=== PATIENT | female | born 1990 | race American Indian/Alaskan Native ===

== ENCOUNTER 2017-11-25 11:42 | Emergency (ER) | payer OTHER ==
[~2017-11-25] VITALS: Ht 162.6 cm; Wt 97.1 kg
[~2017-11-25 11:42] MED LIST: MACROBID 100 M100 MG PO; NORCO 5-325 TA1 EACH PO; PRENATAL FORMU1 EAC3 PO; VITAMIN D400 UNI2 PO; ZOFRAN4 MG PO
== END 2017-11-25 12:26 | disposition home or self-care (01) ==
LOC: ED 11:42
DX: O99.89 Other specified diseases and conditions complicating pregnancy, childbirth and the puerperium (principal); M25.562 Pain in left knee; Z79.899 Other long term (current) drug therapy; Z3A.36 36 weeks gestation of pregnancy; W18.30XA Fall on same level, unspecified, initial encounter
CPT/HCPCS: 99282

== ENCOUNTER 2017-12-29 00:09 | Inpatient (IN) | payer OTHER ==
[~2017-12-29] VITALS: Ht 162.6 cm; Wt 102.0 kg
--- NOTE | 2017-12-29 07:05 | PR ---
[facility] [address] [place], [place] [address] Signed Progress Notes IP Datetime Report Generated by CPN: 12/29/2017 07:05 PROGRESS NOTES: [id number] Impression: Normal progression of labor Plan: Continue present management; Anticipate Vaginal Delivery VITAL SIGNS: [id number] Vital Signs: Reviewed; Within Normal Limits EXAM: [id number] Dilatation: 5.0 Effacement: 90 Station: -1 Uterine Contractions: every 2-3 minutes MEMBRANES: [id number] Pooling: Negative Membrane Status: Ruptured Amniotic Fluid Color: Clear ROM Note: SROM during exam Comments: Comfortable with Epidural Fetus A: [id number] FHR Baseline: 125 Variability: Moderate 6-25bpm Accelerations: 15X15 Decelerations: None FHR Category: Category I Presentation: Vertex Comments on Fetus A: No evidence of metabolic acidosis Fetus B: [id number] Signing Physician: Iris Escobar MD CC: *Electronically Signed* 12/29/17 0705 IRIS ESCOBAR MD PATIENT NAME: DIDI BRYAN PROGRESS NOTE DATE OF : 89 PHYSICIAN: IRIS ESCOBAR MD RPT #: [id number] REPORT IS CONFIDENTIAL AND NOT TO BE RELEASED WITHOUT AUTHORIZATION
--- NOTE | 2017-12-29 08:44 | PR ---
[facility] [address] [facility] [place], [place] [address] Signed Progress Notes IP Datetime Report Generated by CPAlexi: 12/29/2017 08:43 PROGRESS NOTES: [id number] Impression: Normal progression of labor; Reassuring heart rate Procedures: Sterile Vag Exam Plan: Continue present management Informed Consent Obtain: Vaginal Delivery; Risks, Benefits and Alternatives Discussed VITAL SIGNS: [id number] Vital Signs: Reviewed; Within Normal Limits EXAM: [id number] Dilatation: 10.0 Effacement: 100 Station: 1 Uterine Contractions: q2 minutes MEMBRANES: [id number] Pooling: Negative Membrane Status: Ruptured Amniotic Fluid Color: Clear ROM Note: SROM during exam Comments: Pt now complete and feeling pressure and urge to push. Prepare for . Fetus A: [id number] FHR Baseline: 140 Variability: Moderate 6-25bpm Accelerations: None Decelerations: Early FHR Category: Category I Presentation: Vertex Other Presentation: REINALDO Comments on Fetus A: No evidence of metabolic acidosis Fetus B: [id number] Signing Physician: Doris Salas DO CC: *Electronically Signed* 12/29/17 0843 DORIS SALAS DO PATIENT NAME: CLOSE,CARRISA GUILLERMO PROGRESS NOTE DATE OF : 91 PHYSICIAN: DORIS SALAS DO RPT #: [id number] REPORT IS CONFIDENTIAL AND NOT TO BE RELEASED WITHOUT AUTHORIZATION
--- NOTE | 2017-12-30 12:08 | PR ---
[facility] [address] [place] [address] Signed PP Progress Notes Datetime Report Generated by CPN: 12/30/2017 12:08 SUBJECTIVE: [id number] Pain: Within normal limits Nausea/Vomiting: Denies Vital Signs: [id number] Vital Signs: Reviewed; Within Normal Limits EXAM: [id number] Abdomen/Uterus: Normal Lochia: Normal Extremities: Normal Exam Comments: PP Hgb/Hct = 11.4/32.2 IMPRESSION/PLAN/PROCEDURES: [id number] Impression: Normal progression Plan: Discharge Procedures: None Progress Notes: Doing well, wants to go home. Signing Physician: Iris Escobar MD CC: *Electronically Signed* 12/30/17 1208 IRIS ESCOBAR MD PATIENT NAME: DIDI BRYAN PROGRESS NOTE DATE OF : 91 PHYSICIAN: IRIS ESCOBAR MD RPT #: [id number] REPORT IS CONFIDENTIAL AND NOT TO BE RELEASED WITHOUT AUTHORIZATION
== END 2017-12-30 13:15 | disposition home or self-care (01) | DRG 775 ==
LOC: FBC 00:09
PROVIDERS: ADMIT General Practice
PROC: 10E0XZZ Delivery of Products of Conception, External Approach (ICD-10-PCS; principal; 2017-12-29)
PROC: 0KQM0ZZ Repair Perineum Muscle, Open Approach (ICD-10-PCS; principal; 2017-12-29)
PROC: 00HU33Z Insertion of Infusion Device into Spinal Canal, Percutaneous Approach (ICD-10-PCS; 2017-12-29)
PROC: 3E0R3BZ Introduction of Anesthetic Agent into Spinal Canal, Percutaneous Approach (ICD-10-PCS; 2017-12-29)
DX: O48.0 Post-term pregnancy (principal); Z37.0 Single live birth; O70.1 Second degree perineal laceration during delivery; Z3A.41 41 weeks gestation of pregnancy
CPT/HCPCS: 01960; 36415; 85027; J2590; J2795

== ENCOUNTER 2018-03-08 16:25 | Emergency (ER) | payer OTHER ==
[~2018-03-08] VITALS: Ht 162.6 cm; Wt 101.6 kg
== END 2018-03-08 19:38 | disposition home or self-care (01) ==
LOC: ED 16:25
DX: N83.11 Corpus luteum cyst of right ovary (principal); Z79.899 Other long term (current) drug therapy
CPT/HCPCS: 74177; 80053; 81001; 82150; 83690; 84703; 85025; 99284; Q9967

== ENCOUNTER 2020-07-09 22:00 | Emergency (ER) | payer OTHER ==
[~2020-07-09] VITALS: Ht 162.6 cm; Wt 81.7 kg
--- OUTSIDE RECORDS SUMMARY | ~2020-07-09 | XMS | Encounter Summary ---
Demographics + + + | Address | [address] | | | [place] [address] | + + + | Home Phone | | + + + | Preferred Language | Unknown | + + + | Marital Status | Single | + + + | Sabianism Affiliation | Unknown | + + + | Race | Unknown | + + + | Ethnic Group | Unknown | + + + Author + + + | Author | [facility] | | | and [place] | + + + | Organization | [facility] | | | and [place] | + + + | Address | Unknown | + + + | Phone | Unavailable | + + + Support + + +---------+ + | Name | Relationship | Address | Phone | + + +---------+ + | Merline Malone | ECON | Unknown | | + + +---------+ + Care Team Providers + +------+ + | Care Junior Buyer Name | Role | Phone | + +------+ + | Russel Osborn PA-C | PCP | | + +------+ + Encounter Details +--------+ + + + + | Date | Type | Department | Care Team | Description | +--------+ + + + + | 06/09/ | Imaging | [facility] | Provider, | | | 2018 | Exam | [facility] | [address] | | | | | [address] | | | | | [place] [address] | [place] [address] | | | | | [place] [address] | | | | | | [phone] | | | +--------+ + + + + Social History + +-------+ +--------+------+ | Tobacco Use | Types | Packs/Day | Years | Date | | | | | Used | | + +-------+ +--------+------+ | Never Assessed | | | | | + +-------+ +--------+------+ + + + | Sex Assigned at | Date Recorded | | | | + + + | Not on file | | + + + documented as of this encounter Plan of Treatment Not on filedocumented as of this encounter Procedures + +--------+ + + + | Procedure Name | Priori | Date/Time | Associated Diagnosis | Comments | | | ty | | | | + +--------+ + + + | MRI KNEE LEFT WO | Routin | 04/27/2018 | | Results for this | | CONTRAST | e | 3:00 PM | | procedure are in the | | | | PDT | | results section. | + +--------+ + + + documented in this encounter Results MRI Knee Left wo Contrast (04/27/2018 3:00 PM PDT) + + | Specimen | + + | | + + + + + | Narrative | Performed At | + + + | External films for comparison only | [facility] | | | | | No results will be in the chart. | | + + + + +---------+ + + | Performing | Address | City/State/Zipcode | Phone Number | | Organization | | | | + +---------+ + + | [facility] | | | | + +---------+ + + documented in this encounter Visit Diagnoses Not on filedocumented in this encounter"
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
--- OUTSIDE RECORDS SUMMARY | ~2020-07-09 | XMS | Encounter Summary ---
Demographics + + + | Address | [address] | | | [place] [address] | + + + | Home Phone | | + + + | Preferred Language | Unknown | + + + | Marital Status | Single | + + + | Spiritism Affiliation | Unknown | + + + | Race | Unknown | + + + | Ethnic Group | Unknown | + + + Author + + + | Author | [facility] | | | and [place] | + + + | Organization | [facility] | | | and [place] | [...] Team Providers + +------+ + | Care Block Saw Operator Name | Role | Phone | + [...] | MED [facility]NAL | MD [address] | | | | | IMAGING [address] | [address] | | | | | [place] [address] | [place] [address] | | | | | [place] [address] | | | | | | [phone] | | | +--------+ + + + [...] | + +--------+ + + + | XR KNEE LEFT 1 - 2 | Routin | 04/20/2018 | | Results for this | | VW | e | 10:15 AM | | procedure are in the | | | | PDT | | results section. | + +--------+ + + + documented in this encounter Results XR Knee Left 1 - 2 Vw (04/20/2018 10:15 AM PDT) + + | Specimen | + [...]
--- OUTSIDE RECORDS SUMMARY | ~2020-07-09 | XMS | Encounter Summary ---
Demographics + + + | Address | [address] | | | [place] [address] | + + + | Home Phone | | + + + | Preferred Language | Unknown | + + + | Marital Status | Single | + + + | Latter-Day Affiliation | Unknown | + + + | Race | Unknown | + + + | Ethnic Group | Unknown | + + + Author + + + | Author | [facility] | | | and [place] | + + + | Organization | [facility] | | | and [place] | [...] Team Providers + +------+ + | Care Medical Technician Assistant Name | Role | Phone | + [...] | | | | | | | SC KNEE | | | | | | | SCOPE,AID | | | | | | | ANT CRUCIATE | | | | | | | REPAIR SC | | | | | | | [...] +--------+--------+ + + + + Encounter Details +--------+ + + + + | Date | Type | Department | Care Team | Description | +--------+ + + + + | 06/24/ | Anesthesia | [facility] | Silverio Oneill MD | | | 2018 | Event | [facility] | [address] | | | | | [address] | [place] | | | | | [place] | [id number] | | | | | [address] | | | | | | [phone] | Mani Berry MD | | | | | | [address] | | | | | | [place] | | | | | | [id number] | | | | | | | | +--------+ + + + + Anesthesia Record + + + + + | Procedure Name | Responsible | Anesthesia Start | Anesthesia Stop Time | | | Anesthesiologist | Time | | + + + + + | Left Knee Anterior | Silverio Oneill MD | 06/24/18 1259 | 06/24/18 1507 | | Cruciate Ligament | | | | | Reconstruction with | | | | | Partial Lateral | | | | | Meniscus Repair | | | | | *AUTOGRAFT* (Left | | | | | Knee) | | | | + + + + + +----+---+ + + | Da | T | Event | Comment | | te | i | | | | | m | | | | | e | | | +----+---+ + + | 07 | 1 | | | | /2 | 2 | | | | 7/ | 2 | | | | 20 | 1 | | | | 18 | | | | +----+---+ + + | | 1 | An Checkout | Pre-use anesthesia machine/equipment checkout. | | | 2 | | | | | 4 | | | | | 7 | | | +----+---+ + + | | 1 | Pre-Procedu | | | | 2 | ral Timeout | | | | 5 | Completed | | | | 0 | | | +----+---+ + + | | 1 | An Start | | | | 2 | Data | | | | 5 | | | | | 1 | | | +----+---+ + + | | 1 | Block Start | | | | 2 | | | | | 5 | | | | | 1 | | | +----+---+ + + | | 1 | an silverio now | | | | 2 | | | | | 5 | | | | | 6 | | | +----+---+ + + | | 1 | AN Block | | | | 2 | End | | | | 5 | | | | | 9 | | | +----+---+ + + | | 1 | an stop | | | | 2 | data | | | | 5 | | | | | 9 | | | +----+---+ + + | | 1 | An Start | Reassessment prior to anesthesia induction/procedure. | | | 2 | | | | | 5 | | | | | 9 | | | +----+---+ + + | | 1 | Preoxygenat | | | | 3 | ed | | | | 0 | | | | | 3 | | | +----+---+ + + | | 1 | Antibiotic | | | | 3 | Given | | | | 0 | | | | | 4 | | | +----+---+ + + | | 1 | An | | | | 3 | Induction | | | | 0 | | | | | 4 | | | +----+---+ + + | | 1 | An | | | | 3 | Intubation | | | | 0 | | | | | 5 | | | +----+---+ + + | | 1 | AN Bite | | | | 3 | Block | | | | 0 | | | | | 6 | | | +----+---+ + + | | 1 | Chama | | | | 3 | 43-degrees | | | | 0 | | | | | 7 | | | +----+---+ + + | | 1 | An Tourn | | | | 3 | Inflated | | | | 1 | | | | | 5 | | | +----+---+ + + | | 1 | First | | | | 3 | Inc/Proc St | | | | 1 | | | | | 5 | | | +----+---+ + + | | 1 | An Tourn | 97 minutes | | | 4 | Deflated | | | | 5 | | | | | 3 | | | +----+---+ + + | | 1 | Chama off | | | | 4 | | | | | 5 | | | | | 4 | | | +----+---+ + + | | 1 | Extubated | | | | 5 | Awake | | | | 0 | | | | | 1 | | | +----+---+ + + | | 1 | an stop | | | | 5 | data | | | | 0 | | | | | 1 | | | +----+---+ + + | | 1 | An Stop | Patient handed off to recovery nurse. | | | 0 | | | | | 7 | | | +----+---+ + + +------+ | Meds | +------+ + + + | Name | Total | + + + | midazolam | 2 mg | + + + | fentaNYL | 100 mcg | + + + | lidocaine 2% (PF) | 160 mg | + + + | propofol | 200 mg | + + + | dexamethasone | 10 mg | + + + | ropivacaine 0.5% | 24 mL | + + + | ceFAZolin (ANCEF, KEFZOL) 100 | 2 g | | mg/mL IV syringe 2 g | | + + + | lactated ringers (LR) infusion | 1,200 mL | + + + + + | Name | + + | N2O Flow Rate (L/Min) | + + | O2 Flow Rate (L/Min) | + + | Insp O2 | + + | Exp SEV | + + | Air Flow Rate (L/Min) | + + + + | No blood administrations on file. | + + +--------+ + + + | Type | Details | Placement | Removal | +--------+ + + + | Periph | 06/24/18; 1153; Left; Hand; | 06/24/18 1153 by | | | eral | [id number] catheter system; | Donn Gallardo RN | | | IV | 20 gauge | | | +--------+ + + + | Airway | Placement Date: 06/24/18; | 06/24/18 1305 by | 06/24/18 1501 by | | | Placement Time: 1305 (created via | Mani Berry MD | Mani Berry MD | | | procedure documentation); Mask | | | | | Ventilation: EZ; Attempts: 1; | | | | | Airway Type: laryngeal mask; | | | | | Size: 4; Trauma: none; Placement | | | | | Check: exhaled CO2 detection | | | | | device; Removal Date: 06/24/18; | | | | | Removal Time: 1501 | | | +--------+ + + + | Read | 06/24/18; 1325; Left; knee; | 06/24/18 1325 by | 02/21/19 1342 by | | only - | 02/21/19 (Completed/Removed by | Kay Lee RN | User Epic | | | Utility); 1342 (Completed/Removed | | | | Incisi | by Utility) | | | | on | | | | +--------+ + + + documented in this encounter Social History + + + +--------+------+ | [...] + + documented as of this encounter OR Notes Anesthesia Postprocedure Evaluation - Mani Berry MD - 06/24/2018 4:47 PM PDTFormatti ng of this note might be different from the original. ANESTHESIA POSTANESTHESIA EVALUATION Paxton Luna Close 27 y.o. female 1990 [id number] Procedure(s) Left Knee Anterior Cruciate Ligament Reconstruction with Partial Lateral Meni scus Repair *AUTOGRAFT* (Left Knee) Cooperates? Yes Mental Status Performs simple tasks. Respiratory Satisfactory - Airway patent (self maintained). Cardiovascular Satisfactory - Blood pressure and heart rate acceptable Temperature Satisfactory Pain Satisfactory N/V Control Satisfactory Hydration Satisfactory - No signs of dehydration Complications None apparent Some mild medial knee pain. Doing well. Vitals: 06/24/18 1600 06/24/18 1615 06/24/18 1630 BP: 97/79 124/78 130/78 Pulse: 100 77 93 Temp: Resp: 15 SpO2: 100% 100% 100% Electronically signed by Mani Berry MD 06/24/2018 16:[facility] Mani Berry MD at 05/30 4:48 PM PDTAnesthesia Procedure Notes - Mani Berry MD - 06/24/2018 1:39 PM PD TAssociated Order(s): ANE NERVE BLOCK CATHETER NOTEPerineural Procedure Note 06/24/2018 12:59 Nerve block: femoral Laterality: left Continuous block with catheter: No Provider requested procedure: [place] Indication: postoperative analgesia Preprocedure check: patient identified, procedure and rescue equipment checked, preevaluati on including airway assessment complete, risks/benefits discussed, consent obtained, timeout performed, reassessment prior to procedure and monitors applied Patient position: supine Preparation: chlorhexidine/isopropyl alcohol Technique: ultrasound Radiology image stored in patient's chart: ultrasound Needle: stimulating and insulated Needle size: 21 g Needle length: 4 in Medication administered through: needle Negative findings: no blood aspirated and no paresthesia Total volume of local anesthetic solution administered: 12 (Incremental injection in 3-4 mL increments with negative aspiration each time.) mL Attempts: 1 Ease of procedure: easy Comments: Regional block placed for postoperative pain control at request of patient and choi rgeon. Ultrasound utilized throughout entirety of procedure for the purposes of directing t he needle to nerve proximity and watching spread of local anesthetic. Positive level and "d onut" sign. Ultrasound image in chart. NIBP/SpO2 monitoring. Please see anesthesia record or flowsheet for vital sign documentation and see anesthesia r ecord or MAR for all medication documentation. Performing provider: MANI BERRY Windows Security Engineer: AVA Stahl Electronically Signed by: Mani Berry MD ESi date/time: 06/24/2018 13:39 nesthesia Procedure Notes - Mani Berry MD - 06/24/2018 1:38 PM PDTAssociated Order(s): ANE NERVE BLOCK CA THETER NOTEPerineural Procedure Note 06/24/2018 12:55 Nerve block: femoral Laterality: left Continuous block with catheter: No Provider requested procedure: Poncho Indication: postoperative analgesia Preprocedure check: patient identified, procedure and rescue equipment checked, preevaluati on including airway assessment complete, risks/benefits discussed, consent obtained, timeout performed, reassessment prior to procedure and monitors applied Patient position: supine Preparation: chlorhexidine/isopropyl alcohol Technique: ultrasound Radiology image stored in patient's chart: ultrasound Needle: stimulating and insulated Needle size: 21 g Needle length: 4 in Medication administered through: needle Negative findings: no blood aspirated and no paresthesia Total volume of local anesthetic solution administered: 15 (Incremental injection in 3-4 mL increments with negative aspiration each time.) mL Attempts: 1 Ease of procedure: easy Comments: Regional block placed for postoperative pain control at request of patient and choi rgeon. Ultrasound utilized throughout entirety of procedure for the purposes of directing t he needle to nerve proximity and watching spread of local anesthetic. Positive level and "d onut" sign. Ultrasound image in chart. NIBP/SpO2 monitoring. Please see anesthesia record or flowsheet for vital sign documentation and see anesthesia r ecord or MAR for all medication documentation. Performing provider: MANI BERRY Windows Security Engineer: AVA Stahl Electronically Signed by: Mani Berry MD ESig date/time: 06/24/2018 13:38 nesthesia Procedure Notes - Mani Berry MD - 06/24/2018 1:37 PM PDTAssociated Order(s): ANE AIRWAY NOTEAne sthesia Airway Placement 06/24/2018 13:05 Preprocedure check: patient identified, suction, airway equipment checked, oxygen, airway a ssessed and patient reassessment prior to induction Rapid Sequence Induction: no Mask ventilation: easy Attempts: 1 Airway type: laryngeal mask Size: 4 Cuffed: cuffed Route, reference point: center of mouth Trauma: none Tube placement verification: carbon dioxide detection Performing provider: MANI BERRY Electronically Signed by: Mani Berry MD ESig date/time: 13:37 nesthesia Preprocedu re Evaluation - Mani Berry MD - 06/24/2018 12:08 PM PDTFormatting of this note might b e different from the original. ANESTHESIA PREANESTHESIA EVALUATION Paxton Glover 27 y.o. female 1990 [id number] Procedure(s): Left Knee Anterior Cruciate Ligament Reconstruction with Possible Lateral Men iscus Repair *AUTOGRAFT* (Left Knee) Medical history, anesthesia, medications, allergy, NPO status verified histories reviewed. Labs reviewed. Review of Systems / Med History Anesthesia History (-) PONV, difficult intubation, malignant hyperthermia Cardiovascular (-) past PA , Exercise tolerance >4 METS Pulmonary No acute pulmonary concerns.. Neurology (-) CVA Renal (-) chronic renal insufficiency Gastrointestinal/Hepatic (-) reflux/GERD. Endocrine (-) Diabetes.(+) obesity: BMI (30-39) Physical Exam Airway MP I, TM >3 FB, Mouth opening >2 FB. Neck: full ROM, extends >30 degrees. Dental Bill sly normal except where noted below.; CV Rhythm regular. Rate Normal. (-) murmur. Pulm Clear to auscultation bilaterally. Neuro Grossly normal. Anesthesia Plan ASA 2 Type: General. Induction: Intravenous. Potential problems: None anticipated. Monitors: Standard ASA monitors. Consent statement:Anesthetic plan, alternatives, risks and benefits discussed with patient and family. Risks discussed included (but were not limited to): perioperative CV events, sore throat, h eart problems, respiratory events, nausea, failed or inadequate block, bleeding, nerve damag e, intravascular injection. Consenting person understands and agrees to proceed. PARQ. Femoral and Sciatic single-shot peripheral nerve blocks requested by patient and surgeon fo r postoperative pain control. Full PARQ held. All questions answered. Plan GA w/ LMA. . documented in this en counter Plan of Treatment Not on filedocumented as of this encounter Procedures + +--------+ + + + | Procedure Name | Priori | Date/Time | Associated Diagnosis | Comments | | | ty | | | | + +--------+ + + + | ANE NERVE BLOCK | Routin | 06/24/2018 | | Results for this | | CATHETER NOTE | e | 1:39 PM | | procedure are in the | | | | PDT | | results section. | + +--------+ + + + | ANE NERVE BLOCK | Routin | 06/24/2018 | | Results for this | | CATHETER NOTE | e | 1:38 PM | | procedure are in the | | | | PDT | | results section. | + +--------+ + + + | ANE AIRWAY NOTE | Routin | 06/24/2018 | | Results for this | | | e | 1:37 PM | | procedure are in the | | | | PDT | | results section. | + +--------+ + + + documented in this encounter Results Anesthesia Perineural Note (06/24/2018 1:39 PM PDT) + + + | Narrative | Performed At | + + + | Mani Berry MD 06/24/2018 13:40 Perineural Procedure Note | | | 06/24/2018 12:59 Nerve block: femoral Laterality: left | | | Continuous block with catheter: No Provider requested procedure: | | | [place] Indication: postoperative analgesia Preprocedure check: | | | patient identified, procedure and rescue equipment checked, | | | preevaluation including airway assessment complete, risks/benefits | | | discussed, consent obtained, timeout performed, reassessment prior | | | to procedure and monitors applied Patient position: supine | | | Preparation: chlorhexidine/isopropyl alcohol Technique: ultrasound | | | Radiology image stored in patient's chart: ultrasound Needle: | | | stimulating and insulated Needle size: 21 g Needle length: 4 in | | | Medication administered through: needle Negative findings: no blood | | | aspirated and no paresthesia Total volume of local anesthetic | | | solution administered: 12 (Incremental injection in 3-4 mL | | | increments with negative aspiration each time.) mL Attempts: 1 Ease | | | of procedure: easy Comments: Regional block placed for | | | postoperative pain control at request of patient and surgeon. | | | Ultrasound utilized throughout entirety of procedure for the | | | purposes of directing the needle to nerve proximity and watching | | | spread of local anesthetic. Positive level and "donut" sign. | | | Ultrasound image in chart. NIBP/SpO2 monitoring. Please see | | | anesthesia record or flowsheet for vital sign documentation and see | | | anesthesia record or MAR for all medication documentation. | | | Performing provider: MANI BERRY Windows Security Engineer: AVA Stahl | | | Electronically Signed by: Mani Berry MD | | | ESig date/time: 06/24/2018 13:39 | | + + + + + | Procedure Note | + + | Mani Berry MD - 06/24/2018 1:39 PM PDT Perineural Procedure Note06/24/2018 | | 12:59Nerve block: femoralLaterality: leftContinuous block with catheter: NoProvider | | requested procedure: WillardIndication: postoperative analgesiaPreprocedure check: | | patient identified, procedure and rescue equipment checked, preevaluation including | | airway assessment complete, risks/benefits discussed, consent obtained, timeout | | performed, reassessment prior to procedure and monitors appliedPatient position: | | supinePreparation: chlorhexidine/isopropyl alcoholTechnique: ultrasoundRadiology image | | stored in patient's chart: ultrasoundNeedle: stimulating and insulatedNeedle size: 21 | | gNeedle length: 4 inMedication administered through: needleNegative findings: no blood | | aspirated and no paresthesiaTotal volume of local anesthetic solution administered: 12 | | (Incremental injection in 3-4 mL increments with negative aspiration each time.) | | mLAttempts: 1Ease of procedure: easyComments: Regional block placed for postoperative | | pain control at request of patient and surgeon. Ultrasound utilized throughout entirety | | of procedure for the purposes of directing the needle to nerve proximity and watching | | spread of local anesthetic. Positive level and "donut" sign. Ultrasound image in | | chart. NIBP/SpO2 monitoring.Please see anesthesia record or flowsheet for vital sign | | documentation and see anesthesia record or MAR for all medication | | documentation.Performing provider: MANI BERRY TAssistant: Patty Montenegro, | | ATElectronically Signed by: Mani Berry MD ESi date/time: | | 06/24/2018 13:39 | |Ease of procedure: easy | | | |Comments: Regional block placed for postoperative pain control at request of patient and choi rgeon. Ultrasound utilized throughout entirety of procedure for the purposes of directing t he needle to nerve proximity and | |watching spread of local anesthetic. Positive level and "donut" sign. Ultrasound image in chart. NIBP/SpO2 monitoring. | | | | | |Please see anesthesia record or flowsheet for vital sign documentation and see anesthesia r ecord or [facility] for all medication documentation. | | | | | |Performing provider: MANI BERRY | |Windows Security Engineer: AVA Stahl | | | | | | | |Electronically Signed by: Mani Berry MD ESig date/time: 06/24/2018 13:39 | + + Anesthesia Perineural Note (06/24/2018 1:38 PM PDT) + + + | Narrative | Performed At | + + + | Mani Berry MD 06/24/2018 13:39 Perineural Procedure Note | | | 06/24/2018 12:55 Nerve block: femoral Laterality: left | | | Continuous block with catheter: No Provider requested procedure: | | | Poncho Indication: postoperative analgesia Preprocedure check: | | | patient identified, procedure and rescue equipment checked, | | | preevaluation including airway assessment complete, risks/benefits | | | discussed, consent obtained, timeout performed, reassessment prior | | | to procedure and monitors applied Patient position: supine | | | Preparation: chlorhexidine/isopropyl alcohol Technique: ultrasound | | | Radiology image stored in patient's chart: ultrasound Needle: | | | stimulating and insulated Needle size: 21 g Needle length: 4 in | | | Medication administered through: needle Negative findings: no blood | | | aspirated and no paresthesia Total volume of local anesthetic | | | solution administered: 15 (Incremental injection in 3-4 mL | | | increments with negative aspiration each time.) mL Attempts: 1 Ease | | | of procedure: easy Comments: Regional block placed for | | | postoperative pain control at request of patient and surgeon. | | | Ultrasound utilized throughout entirety of procedure for the | | | purposes of directing the needle to nerve proximity and watching | | | spread of local anesthetic. Positive level and "donut" sign. | | | Ultrasound image in chart. NIBP/SpO2 monitoring. Please see | | | anesthesia record or flowsheet for vital sign documentation and see | | | anesthesia record or MAR for all medication documentation. | | | Performing provider: MANI BERRY Windows Security Engineer: AVA Stahl | | | Electronically Signed by: Mani Berry MD | | | ESig date/time: 06/24/2018 13:38 | | + + + + + | Procedure Note | + + | Mani Berry MD - 06/24/2018 1:38 PM PDT Perineural Procedure Note06/24/2018 | | 12:55Nerve block: femoralLaterality: leftContinuous block with catheter: NoProvider | | requested procedure: WillardIndication: postoperative analgesiaPreprocedure check: | | patient identified, procedure and rescue equipment checked, preevaluation including | | airway assessment complete, risks/benefits discussed, consent obtained, timeout | | performed, reassessment prior to procedure and monitors appliedPatient position: | | supinePreparation: chlorhexidine/isopropyl alcoholTechnique: ultrasoundRadiology image | | stored in patient's chart: ultrasoundNeedle: stimulating and insulatedNeedle size: 21 | | gNeedle length: 4 inMedication administered through: needleNegative findings: no blood | | aspirated and no paresthesiaTotal volume of local anesthetic solution administered: 15 | | (Incremental injection in 3-4 mL increments with negative aspiration each time.) | | mLAttempts: 1Ease of procedure: easyComments: Regional block placed for postoperative | | pain control at request of patient and surgeon. Ultrasound utilized throughout entirety | | of procedure for the purposes of directing the needle to nerve proximity and watching | | spread of local anesthetic. Positive level and "donut" sign. Ultrasound image in | | chart. NIBP/SpO2 monitoring.Please see anesthesia record or flowsheet for vital sign | | documentation and see anesthesia record or MAR for all medication | | documentation.Performing provider: MANI BERRY TAssistant: Patty Montenegro, | | ATElectronically Signed by: Mani Berry MD ESi date/time: | | 06/24/2018 13:38 | |Ease of procedure: easy | | | |Comments: Regional block placed for postoperative pain control at request of patient and choi rgeon. Ultrasound utilized throughout entirety of procedure for the purposes of directing t he needle to nerve proximity and | |watching spread of local anesthetic. Positive level and "donut" sign. Ultrasound image in chart. NIBP/SpO2 monitoring. | | | | | |Please see anesthesia record or flowsheet for vital sign documentation and see anesthesia r ecord or MAR for all medication documentation. | | | | | |Performing provider: MANI BERRY T | |Windows Security Engineer: AVA Stahl | | | | | | | |Electronically Signed by: Mani Berry MD [facility] date/time: 06/24/2018 13:38 | + + Anesthesia Airway Note (06/24/2018 1:37 PM PDT) + + + | Narrative | Performed At | + + + | Mani Berry MD 06/24/2018 13:37 Anesthesia Airway | | | Placement 06/24/2018 13:05 Preprocedure check: patient identified, | | | suction, airway equipment checked, oxygen, airway assessed and | | | patient reassessment prior to induction Rapid Sequence Induction: no | | | Mask ventilation: easy Attempts: 1 Airway type: laryngeal mask | | | Size: 4 Cuffed: cuffed Route, reference point: center of mouth | | | Trauma: none Tube placement verification: carbon dioxide detection | | | Performing provider: MANI BERRY Electronically Signed by: | | | MD Antione Hullg | | | date/time: 06/24/2018 13:37 | | + + + + + | Procedure Note | + + | Mani Berry MD - 06/24/2018 1:37 PM PDT Anesthesia Airway Placement06/24/2018 | | 13:05Preprocedure check: patient identified, suction, airway equipment checked, oxygen, | | airway assessed and patient reassessment prior to inductionRapid Sequence Induction: | | noMask ventilation: easyAttempts: 1Airway type: laryngeal maskSize: 4Cuffed: | | cuffedRoute, reference point: center of mouthTrauma: noneTube placement verification: | | carbon dioxide detectionPerforming provider: MANI BERRY TElectronically Signed by: | | MD Amanuel Hull date/time: 06/24/2018 13:37 | | | |Size: 4 | |Cuffed: cuffed | |Route, reference point: center of mouth | |Trauma: none | |Tube placement verification: carbon dioxide detection | |Performing provider: MANI BERRY | | | | | |Electronically Signed by: Mani Berry MD ESig date/time: 13:37 | | | + + documented in this encounter Visit Diagnoses Not on filedocumented in this encounter Administered Medications + +--------+ +------+------+------+ | Medication Order | MAR | Action | Dose | Rate | Site | | | Action | Date | | | | + +--------+ +------+------+------+ | ceFAZolin (ANCEF, KEFZOL) 100 | Given | 06/24/20 | 2 g | | | | mg/mL IV syringe 2 g 2 g, | | 18 1:04 | | | | | Intravenous, Administer over 30 | | PM PDT | | | | | Minutes, Prior to Incision, | | | | | | | Starting Wed06/24/18 at 0309, For | | | | | | | 1 dose, administer within 1 hour | | | | | | | of incision, Pre-op, | | | | | | | Indications: Surgical Prophylaxis | | | | | | + +--------+ +------+------+------+ +---+---+ | | | +---+---+ + +-------+ +-------+---+---+ | dexamethasone (PF) 10 mg/mL | Given | 06/24/20 | 10 mg | | | | injection Intravenous, PRN, | | 18 1:08 | | | | | Starting Wed06/24/18 at 1308, | | PM PDT | | | | | Anesthesia Intra-op | | | | | | + +-------+ +-------+---+---+ +---+---+ | | | +---+---+ + +-------+ +--------+---+---+ | fentaNYL (PF) injection | Given | 06/24/20 | 50 mcg | | | | Intravenous, PRN, Pain, Starting | | 18 1:15 | | | | | 06/24/18 at 1251, Anesthesia | | PM PDT | | | | | Intra-op | | | | | | + +-------+ +--------+---+---+ +-------+ +--------+---+---+ | Given | 06/24/20 | 50 mcg | | | | | 18 12:51 | | | | | | PM PDT | | | | +-------+ +--------+---+---+ +---+---+ | | | +---+---+ + +---------+ +---+---+---+ | lactated ringers (LR) infusion | New Bag | 06/24/20 | | | | | at 10-100 mL/hr, Intravenous, | | 18 2:34 | | | | | CONTINUOUS, Starting 06/24/18 | | PM PDT | | | [...] | | +---+---+ + +-------+ +--------+---+---+ | lidocaine (PF) 2% injection | Given | 06/24/20 | 100 mg | | | | PRN, Starting Wed06/24/18 at | | 18 1:04 | | | | | 1304, Anesthesia Intra-op | | PM PDT | | | | + +-------+ +--------+---+---+ +-------+ +-------+---+---+ | Given | 06/24/20 | 60 mg | | | | | 18 12:55 | | | | | | PM PDT | | | | +-------+ +-------+---+---+ +---+---+ | | | +---+---+ + +-------+ +------+---+---+ | midazolam (VERSED) 1 mg/mL | Given | 06/24/20 | 2 mg | | | | injection Intravenous, PRN, | | 18 12:51 | | | | | Anxiety, Starting Wed06/24/18 at | | PM PDT | | | | | 1251, Anesthesia Intra-op | | | | | | + +-------+ +------+---+---+ +---+---+ | | | +---+---+ + +-------+ +--------+---+---+ | propofol (DIPRIVAN) injection | Given | 06/24/20 | 200 mg | | | | Intravenous, PRN, Starting Wed | 1:04 | | | | | 06/24/18 at 1304, Anesthesia | | PM PDT | | | | | Intra-op | | | | | | + +-------+ +--------+---+---+ +---+---+ | | | +---+---+ + +-------+ +--------+---+---+ | ropivacaine (NAROPIN) 5 mg/mL | Given | 06/24/20 | 12 mLs | | | | (0.5%) injection PERINEURAL, | | 18 12:59 | | | | | PRN, Starting Wed06/24/18 at | | PM PDT | | | | | 1255, Anesthesia Intra-op | | | | | | + +-------+ +--------+---+---+ +-------+ +--------+---+---+ | Given | 06/24/20 | 12 mLs | | | | | 18 12:55 | | | | | | PM PDT | | | | +-------+ +--------+---+---+ +---+---+ | | | +---+---+ documented in this encounter
--- OUTSIDE RECORDS SUMMARY | ~2020-07-09 | XMS | Encounter Summary ---
Demographics + + + | Address | [address] | | | [place] [address] | + + + | Home Phone | | + + + | Preferred Language | Unknown | + + + | Marital Status | Single | + + + | Pentecostal Affiliation | Unknown | + + + | Race | Unknown | + + + | Ethnic Group | Unknown | + + + Author + + + | Author | [facility] | | | and [place] | + + + | Organization | [facility] | | | and [...] Team Providers + +------+ + | Care Mechatronics Technologist Name | Role | Phone | + +------+ + | Russel Osborn PA-C | PCP | | + +------+ + Encounter Details +--------+ + + + + | Date | Type | Department | Care Team | Description | +--------+ + + + + | 05/30/ | Imaging | [facility] | Provider, | | | 2018 | Exam | [facility] | MD Chris [address] | | | | | IMAGING [address] | | | | | [address] | [place] [address] | | | | | [place] [address] | | | | | | [phone] | | | +--------+ + + + [...] + +--------+ + + + | MRI SHOULDER LEFT | Routin | 05/04/2018 | | Results for this | | ARTHROGRAM W | e | 12:00 PM | | procedure are in the | | CONTRAST | | PDT | | results section. | + +--------+ + + + documented in this encounter Results MRI Shoulder Left Arthrogram w Contrast (05/04/2018 12:00 PM PDT) + + | Specimen | [...]
--- OUTSIDE RECORDS SUMMARY | ~2020-07-09 | XMS | Encounter Summary ---
Demographics + + + | Address | [address] | | | [place] [address] | + + + | Home Phone | | + + + | Preferred Language | Unknown | + + + | Marital Status | Single | + + + | Yazidi Affiliation | Unknown | + + + | Race | Unknown | + + + | Ethnic Group | Unknown | + + + Author + + + | Author | [facility] | | | and [place] | + + + | Organization | [facility] | | | and [place] [...] Team Providers + +------+ + | Care Forest Fire Warden Name | Role | Phone | + +------+ + | Russel Osborn PA-C | PCP | | + +------+ + Encounter Details +--------+ + + + + | Date | Type | Department | Care Team | Description | +--------+ + + + + | 06/21/ | Episode | [facility] | [place], | | | 2018 | Changes | ORTHOPEDIC SURGERY | Gibson Connolly MA | | | | | [address] | | | | | | [place] | | | | | | [address] | | | | | | [phone] | | | +--------+ + + + + Social History + + [...] Not on filedocumented as of this encounter Visit Diagnoses Not on filedocumented in this encounter"
--- OUTSIDE RECORDS SUMMARY | ~2020-07-09 | XMS | Encounter Summary ---
Demographics + + + | Address | [address] | | | [place] [address] | + + + | Home Phone | | + + + | Preferred Language | Unknown | + + + | Marital Status | Single | + + + | Jew Affiliation | Unknown | + + + | Race | Unknown | + + + | Ethnic Group | Unknown | + + + Author + + + | Author | [facility] | | | and [place] | + + + | Organization | [facility] | | | and [place] | [...] Team Providers + +------+ + | Care Historic Interpreter Name | Role | Phone | + +------+ + | Russel Osborn PA-C | PCP | | + +------+ + Reason for Visit +---------+ + | Reason | Comments | +---------+ + | Post Op | Post Op Left Knee ACL Reconstruction with possible lateral | | | meniscus Repair DOS:06/24/2018 | +---------+ + Evaluate & Treat (Routine) +--------+--------+ + + + + | Status | Reason | Specialty | Diagnoses / | Referred By | Referred To | | | | | Procedures | Contact | Contact | +--------+--------+ + + + + | Closed | | Orthopedic | Diagnoses | Karis, | Poncho, | | | | Surgery | Chronic | Hope Fitzpatrick, | Jamie Oconnell MD | | | | | instability | [place] [address] | [facility] [address] | | | | | of knee, | | [place], | | | | | left knee | [place] | [place] [address] | | | | | | WAY | Phone: | | | | | | [place], | [phone] | | | | | | [place] [address] | Fax: | | | | | | Phone: | [phone] | | | | | | [phone] | | | | | | | Fax: | | | | | | | [phone] | | +--------+--------+ + + + + Encounter Details +--------+---------+ + + + | Date | Type | Department | Care Team | Description | +--------+---------+ + + + | 10/27/ | Office | [facility] | Jamie Isaac, | S/P ACL | | 2018 | Visit | ORTHOPEDIC SURGERY | [address] | reconstruction | | | | [address] [place] | [facility] | (Primary Dx) | | | | [place], [place] | [id number] | | | | | [address] | | | | | | [phone] | | | +--------+---------+ + + + Social History [...] + + + | Blood Pressure | - | - | | + + + + + | Pulse | - | - | | + + + + + | Temperature | - | - | | + + + + + | Respiratory Rate | - | - | | + + + + + | Oxygen Saturation | - | - | | + + + + + | Inhaled Oxygen | - | - | | | Concentration | | | | + + + + + | Weight | 95.3 kg (210 lb) | 10/27/2018 10:00 AM | | | | | PST | | + + + + + | Height | 162.6 cm (5' 4") | 10/27/2018 10:00 AM | | | | | PST | | + + + + + | Body Mass Index | 36.05 | 10/27/2018 10:00 AM | | | | | PST | | + + + + + documented in this encounter Progress Notes Jamie Isaac MD - 10/27/2018 9:45 AM PSTPatient returns follow-up left knee ACL recons truction 4 months out She is doing better all the time She is a young mother and is very active She is doing her own exercises She will be starting physical therapy soon on her shoulder and would like to add strengthen ing exercises for her ACL as well On physical exam her wound and portals are well-healed No effusion today She has a rock solid ligamentous exam with negative Nixon and negative pivot shift She has excellent range of motion We discussed the restrictions needed to protect the repair as well as exercises to work on We will see her back in 2 months for recheck documented in this encounter Plan of Treatment Not on filedocumented as of this encounter Visit Diagnoses + + | Diagnosis | + + | S/P ACL reconstruction - Primary Other postprocedural status | + + documented in this encounter
--- OUTSIDE RECORDS SUMMARY | ~2020-07-09 | XMS | Clinical Summary ---
Demographics + + + | Address | [address] | | | [place] [address] | + + + | Home Phone | | + + + | Preferred Language | Unknown | + + + | Marital Status | Single | + + + | Holiness Affiliation | Unknown | + + + | Race | Unknown | + + + | Ethnic Group | Unknown | + + + Author + + + | Author | [facility] | | | and [place] | + + + | Organization | [facility] | | | and [place] [...] Team Providers + +------+ + | Care Small Stock Facer Name | Role | Phone | + +------+ + | Russel Osborn PA-C | PCP | | + +------+ + Allergies No Known Allergies Medications + + + +---------+------+------+-------+ | Medication | Sig | Dispensed | Refills | Star | End | Statu | | | | | | t | Date | s | | | | | | Date | | | + + + +---------+------+------+-------+ | ibuprofen (ADVIL, | Take 600 mg by mouth | | 0 | | | Activ | | MOTRIN) 200 mg | every 8 hours as | | | | | e | | tablet | needed for Pain. | | | | | | + + + +---------+------+------+-------+ Active Problems + + + | Problem | Noted Date | + + + | Bankart lesion of left shoulder | 06/30/2018 | + + + | Shoulder instability, left | 06/29/2018 | + + + | Left shoulder pain | 06/28/2018 | + + + | Rupture of anterior cruciate ligament of left knee | 06/24/2018 | + + + | Obesity, Class I, BMI 30-34.9 | 06/24/2018 | + + + Social History + + [...] on file | | + + + Last Filed Vital Signs + + + + + | Vital Sign | Reading | Time Taken | Comments | + + + + + | Blood Pressure | 122/68 | 10/12/2018 2:13 PM | | | | | PST | | + + + + + | Pulse | 74 | 10/12/2018 2:13 PM | | | | | PST | | + + + + + | Temperature | 36.6 C (97.9 F) | 06/24/2018 3:06 PM | | | | | PDT | | + + + + + | Respiratory Rate | 18 | 10/12/2018 2:13 PM | | | | | PST | | + + + + + | Oxygen Saturation | 100% | 06/24/2018 4:45 PM | | | | | PDT [...] | | + + + + + Plan of Treatment + + + + + | Health Maintenance | Due Date | Last | Comments | | | | Done | | + + + + + | Hepatitis C | | | | | Screening | 1 | | | + + + + + | Med Mgmt: BUN | | | | | | 1 | | | + + + + + | Med Mgmt: Cr | | | | | | 1 | | | + + + + + | Medication | | | | | Management | 1 | | | + + + + + | Cervical Cancer | | | | | Screening (Pap) | 2 | | | + + + + + | Vaccine: Influenza | | 09/08/20 | | | (#1) | 0 | 17, | | | | | 12/23/19 | | | | | 17, | | | | | 12/10/19 | | | | | 12 | | + + + + + | Vaccine: | | 10/19/20 | | | Dtap/Tdap/Td (4 - | 7 | 17, | | | Td) | | 01/03/20 | | | | | 13, | | | | | 12/10/19 | | | | | 12 | | + + + + + Implants + +------+--------+ +--------+--------+--------+ | Implanted | Type | Area | Manufacture | Device | Shelf | Model | | | | | r | | Expira | / | | | | | | Identi | tion | Serial | | | | | | fier | Date | / Lot | + +------+--------+ +--------+--------+--------+ | Imp Dev Tglloc W/ Ziplp | | Left: | STARLA - | | 11/07/ | [id number] | | Inline - [id number]: | | Knee | ZIMM | | 2021 | [id number] / | | Qty: 1 on 06/24/2018 by | | | | | | [id number] | | Jamie Isaac MD at [facility] | | | | | | 0 | | [facility] | | | | | | | | CENTER | | | | | | | + +------+--------+ +--------+--------+--------+ | Screw Bone T10 F/T 3.5x32mm - | | Left: | TRINA | | | [id number] | | [id number]: Qty: 1 | | Knee | MEDICAL - | | | / / | | on 06/24/2018 by Poncho | | | SAMARA | | | | | Jamie Oconnell MD at [facility] | | | | | | | | [facility] | | | | | | | + +------+--------+ +--------+--------+--------+ | Washer T8-T10 Scrw | | Left: | TRINA | | | [id number] | | 2.4/2.7/3.5 - | | Knee | MEDICAL - | | | / / | | [id number]: Qty: 1 | | | STRY | | | | | on 06/24/2018 by Poncho, | | | | | | | | Jamie Oconnell MD at [facility] | | | | | | | | [facility] | | | | | | | + +------+--------+ +--------+--------+--------+ Results Not on filefrom Last 3 Months Insurance + +--------+ +--------+ +---------+--------+ | Payer | Benefi | Subscriber | Effect | Phone | Address | Type | | | t Plan | ID | brando | | | | | | / | | Dates | | | | | | Group | | | | | | + +--------+ +--------+ +---------+--------+ | [employer] | [employer] | [id number] | 11/08/ | [phone] | | Medica | | MEDICAID HMO | HEALTH | | 2017-P | 1 | | id | | | MDCD | | resent | | | | | | [place]MO [place] | | | | | | + +--------+ +--------+ +---------+--------+ | [employer] | [employer] | [id number] | 11/29/19 | | | Indemn | | SERVICE | YELLOW | | 18-Pre | | | ity | | | HAWK | | sent | | | | + +--------+ +--------+ +---------+--------+ + +--------+ +--------+ + + | Guarantor Name | Accoun | Relation to | Date | Phone | Billing Address | | | t Type | Patient | of | | | | | | | | | | + +--------+ +--------+ + + | Paxton Glover | Person | Self | [birth year] | [address] | | | [place] | | 1990 | [phone] | [address] [place] [address] | | | ismael | | | 6 (Home) | | + +--------+ +--------+ + + Advance Directives + + + + + | Type | Date Recorded | Patient | Explanation | | | | Piercing Artist | | + + + + + | Power of | | | | | Telephone Lines Repairer | | | | + + + + + | Advance | 06/24/2018 9:41 | | | | Directive | AM | | | + + + + + + + + + + | Code Status | Date | Date | Comments | | | Activated | Inactivated | | + + + + + | Full Code | 06/24/2018 | 06/24/2018 | | | | 3:46 PM | 7:37 PM | | + + + + +
--- OUTSIDE RECORDS SUMMARY | ~2020-07-09 | XMS | Encounter Summary ---
Demographics + + + | Address | [address] | | | [place] [address] | + + + | Home Phone | | + + + | Preferred Language | Unknown | + + + | Marital Status | Single | + + + | Caodaism Affiliation | Unknown | + + + | Race | Unknown | + + + | Ethnic Group | Unknown | + + + Author + + + | Author | [facility] | | | and [place] | + + + | Organization | [facility] | | | and [place] [...] Team Providers + +------+ + | Care City Solicitor Name | Role | Phone | + +------+ + | Russel Osborn PA-C | PCP | | + +------+ + Reason for Visit +---------+ + | Reason | Comments | +---------+ + | Post Op | Leftt knee anterior cruciate ligament reconstruction with | | | possible lateral meniscus repair. DOS 06/24/2018 | +---------+ + Encounter Details +--------+---------+ + + + | Date | Type | Department | Care Team | Description | +--------+---------+ + + + | 07/07/ | Office | [facility] | Jamie Isaac, | Postop check | | 2018 | Visit | ORTHOPEDIC SURGERY | MD Steve MAS | (Primary Dx) | | | | [address] | [place] | | | | | [place] | [address] | | | | | [address] | | | | | | [phone] | | | +--------+---------+ + + + [...] Weight | 95.3 kg (210 lb) | 07/07/2018 9:04 AM | | | | | PDT | | + + + + + | Height | 162.6 cm (5' 4") | 07/07/2018 9:04 AM | | | | | PDT | | + + + + + | Body Mass Index | 36.05 | 07/07/2018 9:04 AM | | | | | PDT | | + + + + + documented in this encounter Progress Notes Jamie Isaac MD - 07/07/2018 9:00 AM PDTPatient returns postop left ACL reconstruction She is doing well On exam her wounds are healing well without infection Minimal effusion in pouch We went over the goals of range of motion and WBAT with the crutches She is using a neoprene sleeve instead of the range of motion brace that was too uncomforta ble for her Will return in 3-4 weeks documented in this encounter Plan of Treatment Not on filedocumented as of this encounter Visit Diagnoses + + | Diagnosis | + + | Postop check - Primary Follow-up examination, following unspecified surgery | + + documented in this encounter
--- OUTSIDE RECORDS SUMMARY | ~2020-07-09 | XMS | Encounter Summary ---
Demographics + + + | Address | [address] | | | [place] [address] | + + + | Home Phone | | + + + | Preferred Language | Unknown | + + + | Marital Status | Single | + + + | Alevism Affiliation | Unknown | + + + | Race | Unknown | + + + | Ethnic Group | Unknown | + + + Author + + + | Author | [facility] | | | and [place] | + + + | Organization | [facility] | | | and [...] Team Providers + +------+ + | Care Software Specialist Name | Role | Phone | + +------+ + | Russel Osborn PA-C | PCP | | + +------+ + Reason for Visit +---------+--------+ + | Reason | Onset | Comments | | | Date | | +---------+--------+ + | Post Op | 07/05/ | | | | 2018 | | +---------+--------+ + Encounter Details +--------+ + + + + | Date | Type | Department | Care Team | Description | +--------+ + + + + | 07/05/ | Telephone | [facility] [place] | Jamie Isaac, | Post Op | | 2018 | | ORTHOPEDIC SURGERY | MD [address] | | | | | [address] | [place] | | | | | [place] | [address] | | | | | [address] | | | | | | [phone] | | | +--------+ + + + [...] + + documented as of this encounter Miscellaneous Notes Telephone Encounter - Minerva Almeida - 07/06/2018 5:10 PM PDTscheduledElectronically sig amena by Minerva Almeida at 07/06/2018 5:10 PM PDTTelephone Encounter - Minerva Almeida - 4:14 PM PDTUNABLE TO CONTACT PATIENT NO VOICEMAIL SET UP elephone Encounter - Anisha Arora Cert MA - 07/06/2018 2:12 PM PDTPlease contact paxton and have her come in tomorrow 07/07/2018 a t 9:00 am. TTelephone Encounter - Minerva Almeida - 07/05/2018 3:12 PM PDTPatient stated she was retu rning a phone call. Patient was advised that te phone call was to confirm her appt that she no showed. Patient stated understanding and said she is healing well. Please call patient with a new post op appt at [phone] DOS: [id number] Left knee partial lateral meniscectomy documented in this encounter Plan of Treatment Not on filedocumented as of this encounter Visit Diagnoses Not on filedocumented in this encounter"
--- OUTSIDE RECORDS SUMMARY | ~2020-07-09 | XMS | Encounter Summary ---
Demographics + + + | Address | [address] | | | [place] [address] | + + + | Home Phone | | + + + | Preferred Language | Unknown | + + + | Marital Status | Single | + + + | Buddhism Affiliation | Unknown | + + + | Race | Unknown | + + + | Ethnic Group | Unknown | + + + Author + + + | Author | [facility] | | | and [place] | + + + | Organization | [facility] | | | and [place] [...] Team Providers + +------+ + | Care Stone Chimney Mason Name | Role | Phone | + +------+ + | Russel Osborn PA-C | PCP | | + +------+ + Encounter Details +--------+ + + + + | Date | Type | Department | Care Team | Description | +--------+ + + + + | 06/21/ | Hospital | [facility] | Conversion | Diagnosis unknown | | 2018 | Encounter | CONVERSION [address] | Transaction, | | | | | [address] | Provider Unknown | | | | | [place] | [phone] | | | | | [address] | | | | | | [phone] | | | +--------+ + + + [...] + + documented as of this encounter Medications at Time of Discharge [...] + + + +---------+ + + | MAPAP 325 MG | Take 325-650 mg by | | 0 | 03/14/20 | | | tablet | mouth as needed. | | | 18 | 8 | + + + +---------+ + + documented as of this encounter Plan of Treatment Not on filedocumented as of this encounter Procedures + +--------+ + + + | Procedure Name | Priori | Date/Time | Associated Diagnosis | Comments | | | ty | | | | + +--------+ + + + | MRI SHOULDER LEFT WO | Routin | 05/04/2018 | | Results for this | | CONTRAST | e | 12:16 AM | | procedure are in the | | | | PDT | | results section. | + +--------+ + + + documented in this encounter Results MRI Shoulder Left wo Contrast (05/04/2018 12:16 AM PDT) + + | Specimen | + + | | + + + + + | Narrative | Performed At | + + + | This is a non-reportable procedure without a radiologist report and | | | is used for image storage only | | + + + + + | Procedure Note | + + | Lico Valle - 07/12/2019 5:28 PM PDT This is a non-reportable procedure | | without a radiologist report and isused for image storage only | + + documented in this encounter Visit Diagnoses + + | Diagnosis | + + | Diagnosis unknown Other unknown and unspecified cause of morbidity or mortality | + + documented in this encounter"
--- OUTSIDE RECORDS SUMMARY | ~2020-07-09 | XMS | Encounter Summary ---
Demographics + + + | Address | [address] | | | [place] [address] | + + + | Home Phone | | + + + | Preferred Language | Unknown | + + + | Marital Status | Single | + + + | Amish Affiliation | Unknown | + + + | Race | Unknown | + + + | Ethnic Group | Unknown | + + + Author + + + | Author | [facility] | | | and [place] | + + + | Organization | [facility] | | | and [...] Team Providers + +------+ + | Care Configuration Technician Name | Role | Phone | + +------+ + | Russel Osborn PA-C | PCP | | + +------+ + Reason for Visit +---------+ + | Reason | Comments | +---------+ + | Post Op | Post Op Left Knee ACL Reconstruction with Possible Lateral | | | meniscus Repair DOS:06/24/2018 | +---------+ + Encounter Details +--------+---------+ + + + | Date | Type | Department | Care Team | Description | +--------+---------+ + + + | 07/28/ | Office | [facility] | Jamie Isaac, | Postop check | | 2018 | Visit | ORTHOPEDIC SURGERY | MD Steve MAS | (Primary Dx) | | | | [address] | [place] | | | | | [place] | [address] | | | | | [address] | | | | | | [phone] | | | +--------+---------+ + + + [...] Weight | 95.3 kg (210 lb) | 07/28/2018 12:53 PM | | | | | PDT | | + + + + + | Height | 162.6 cm (5' 4") | 07/28/2018 12:53 PM | | | | | PDT | | + + + + + | Body Mass Index | 36.05 | 07/28/2018 12:53 PM | | | | | PDT | | + + + + + documented in this encounter Progress Notes Jamie Isaac MD - 07/28/2018 1:00 PM PDTPatient returns postop left knee ACL reconstru ction She is doing better He is walking without a limp She does not like her brace and doesn't wear at She has a rock solid ligamentous exam today No effusion We again discussed the exercise regimen for her to work on and restrictions and I will see her in one month docume nted in this encounter Plan of Treatment Not on filedocumented as of this encounter Visit Diagnoses + + | Diagnosis | + + | Postop check - Primary Follow-up examination, following unspecified surgery | + + documented in this encounter
--- OUTSIDE RECORDS SUMMARY | ~2020-07-09 | XMS | Encounter Summary ---
Demographics + + + | Address | [address] | | | [place] [address] | + + + | Home Phone | | + + + | Preferred Language | Unknown | + + + | Marital Status | Single | + + + | Mu-Ism Affiliation | Unknown | + + + | Race | Unknown | + + + | Ethnic Group | Unknown | + + + Author + + + | Author | [facility] | | | and [place] | + + + | Organization | [facility] | | | and [place] [...] Team Providers + +------+ + | Care Transition Social Worker Name | Role | Phone | + +------+ + | Russel Osborn PA-C | PCP | | + +------+ + Reason for Visit + + + | Reason | Comments | + + + | New Patient | CNMT Chronic instability of knee, left knee ---*MRI Review* | + + + Evaluate & Treat (Routine) +--------+--------+ + [...] | | | | instability | [place] [id number] | [facility] [place] | | | | | of knee, | | [place], | | | | | left knee | [place] | [place] [address] | | | | | | WAY | Phone: | | | | | | [place], | [phone] | | | | | | [place] [address] | Fax: | | | | | | Phone: | [phone] | | | | | | [phone] | | | | | | | Fax: | | | | | | | [phone] | | +--------+--------+ + + + + Encounter Details +--------+---------+ + + + | Date | Type | Department | Care Team | Description | +--------+---------+ + + + | 06/17/ | Office | [facility] | Jamie Isaac, | Rupture of anterior | | 2018 | Visit | ORTHOPEDIC SURGERY | MD [address] | cruciate ligament of | | | | [address] [place] | [place] | left knee, initial | | | | [place] | [address] | encounter (Primary | | | | [address] | | Dx); Tear of lateral | | | | [phone] | | meniscus of left | | | | | | knee, current, | | | | | | unspecified tear | | | | | | type, initial | | | | | | encounter | +--------+---------+ + + + Social History [...] + + + | Blood Pressure | 120/86 | 06/17/2018 9:37 AM | | | | | PDT | | + + + + + | Pulse | 82 | 06/17/2018 9:37 AM | | | | | PDT | | + + + + + | Temperature | 36.8 C (98.2 F) | 06/17/2018 9:37 AM | | | | | PDT | | + + + + + | Respiratory Rate | 16 | 06/17/2018 9:37 AM | | | | | PDT | | + + + + + | Oxygen Saturation | 97% | 06/17/2018 9:37 AM | | | | | PDT | | + + + + + | Inhaled Oxygen | - | - | | | Concentration | | | | + + + + + | Weight | 84.8 kg (187 lb) | 06/17/2018 9:37 AM | | | | | PDT | | + + + + + | Height | 165.1 cm (5' 5") | 06/17/2018 9:37 AM | | | | | PDT | | + + + + + | Body Mass Index | 31.12 | 06/17/2018 9:37 AM | | | | | PDT | | + + + + + documented in this encounter Progress Notes Jamie Isaac MD - 06/17/2018 10:15 AM PDTFormatting of this note might be different [...] stomach [] Change in stools [] Vomiting blood [] Nausea [] Hemorrhoids [] Jaundice [ [...] [] Speech change [] Voice change Vitals: 06/17/18 0937 BP: 120/86 Pulse: 82 Resp: 16 Temp: 36.8 C (98.2 F) PainSc: 3 PainLoc: Knee Estimated body mass index is 31.12 kg/m as calculated from the following: Height as of this encounter: 1.651 m (5' 5"). Weight as of this encounter: 84.8 kg (187 lb). Heart - regular rate and rhythm Lungs [...] episodes to reduce risk of cartilage damage discussed The role of acl reconstruction with the different graft options and risks and reasonable e xpectations for recovery all outlined She understands and wishes to proceed with left knee acl reconstruction using her own hams trings and possible lateral meniscus repair versus partial resection The above note was dictated using [employer] voice recognition software. It may have not been p roofread in entirety. Minor errors in grammar may occur. documented in this en counter Plan of Treatment Not on filedocumented as of this encounter Visit Diagnoses + + | Diagnosis | + + | Rupture of anterior cruciate ligament of left knee, initial encounter - Primary | + + | Tear of lateral meniscus of left knee, current, unspecified tear type, initial | | encounter | + + documented in this encounter
--- OUTSIDE RECORDS SUMMARY | ~2020-07-09 | XMS | Encounter Summary ---
Demographics + + + | Address | [address] | | | [place] [address] | + + + | Home Phone | | + + + | Preferred Language | Unknown | + + + | Marital Status | Single | + + + | Tenriism Affiliation | Unknown | + + + | Race | Unknown | + + + | Ethnic Group | Unknown | + + + Author + + + | Author | [facility] | | | and [place] | + + + | Organization | [facility] | | | and [place] | [...] Team Providers + +------+ + | Care [employer] Name | Role | Phone | + [...] | | | | | | | AR KNEE | | | | | | | SCOPE,AID | | | | | | | ANT CRUCIATE | | | | | | | REPAIR AR | | | | | | | [...] + + + + | 06/24/ | Hospital | [facility] | Jamie Isaac, | Rupture of anterior | | 2018 | Encounter | [facility] | [facility] [place] | cruciate ligament of | | | | [address] | [place] | left knee, initial | | | | [place] | [address] | encounter; Other | | | | [address] | | tear of lateral | | | | [phone] | | meniscus of left | | | | | | knee as current | | | | | | injury, initial | | | | | | encounter | +--------+ + + + + Social [...] Instructions Jamie Isaac MD - 06/24/2018[facility] as much as leila garcia but keep the bandages dry with a [...] lateral meniscus repair All questions answered Jamie Irby MD - 06/23/2018 4:37 PM PDTFormatting of [...] verified. The lateral compartment was inspected in uwxnyk-so-beou position and the lateral meniscus tear was [...] identification of the appropriate t unnel. An [id number]-pqi-dyv positioning guide through the anteromedial portal was [...] placed in the central third of the [place] tibial stump. We re jessica 7 mm [...] used a post and washer using a [employer] 3.5 mm bicortical screw a nd washer. [...] | 1.010, 1.015, | | | | [place], | | 1.020, 1.025 | | | | POC | | | | | + + + + + + | Lot Number | [id number] | | | | + + + [...] cruciate ligament of left knee, initial encounter | + + | Other tear of lateral meniscus of left knee as current injury, initial encounter | + + documented in this encounter Administered Medications + +--------+ [...] glucose < 50, | | | Starting Wed06/24/18 at 1136, | | | Repeat in [...] | | | | | Pain, Starting Wed06/24/18 at | | | | | | [...] | | | | | Oral, ONCE, Wed06/24/18 at 1200, | | AM PDT | [...] consult with | | | anesthesiologist., Starting Wed | | | 06/24/18 at 1136, For 1 dose, | | | Apply to mastoid process, Pre-op | | + +---+ | | | + +---+ documented in this encounter
--- OUTSIDE RECORDS SUMMARY | ~2020-07-09 | XMS | Encounter Summary ---
Demographics + + + | Address | [address] | | | [place] [address] | + + + | Home Phone | | + + + | Preferred Language | Unknown | + + + | Marital Status | Single | + + + | Temple Affiliation | Unknown | + + + | Race | Unknown | + + + | Ethnic Group | Unknown | + + + Author + + + | Author | [facility] | | | and [place] | + + + | Organization | [facility] | | | and [place] [...] Team Providers + +------+ + | Care Senior Product Development Manager Name | Role | Phone | + +------+ + | Russel Osborn PA-C | PCP | | + +------+ + Encounter Details +--------+ + + + + | Date | Type | Department | Care Team | Description | +--------+ + + + + | 06/21/ | Hospital | [facility] | Conversion | Diagnosis unknown | | 2018 | Encounter | CONVERSION [address] | Transaction, | | | | | [address] | Provider Unknown | | | | | [place] | [phone] | | | | | [address] | | | | | | [phone] | | | +--------+ + + + [...] | + +--------+ + + + | FL SHOULDER | Routin | 05/04/2018 | | Results for this | | INJECTION LEFT FOR | e | 12:12 AM | | procedure are in the | | MRI OR CT | | PDT | | results section. | + +--------+ + + + documented in this encounter Results FL Shoulder Injection Left for MRI or CT (05/04/2018 12:12 AM PDT) + + | Specimen | [...]
== END 2020-07-10 00:15 | disposition short-term general hospital (02) ==
LOC: ED 22:00
PROC: 09Q0XZZ Repair Right External Ear, External Approach (ICD-10-PCS; principal; 2020-07-10)
DX: S06.5X9A Traumatic subdural hemorrhage with loss of consciousness of unspecified duration, initial encounter (principal); S01.311A Laceration without foreign body of right ear, initial encounter; R41.82 Altered mental status, unspecified; I10 Essential (primary) hypertension; Z23 Encounter for immunization; F17.200 Nicotine dependence, unspecified, uncomplicated; X58.XXXA Exposure to other specified factors, initial encounter
CPT/HCPCS: 12011; 70450; 72040; 73630; 80053; 83605; 84703; 85025; 85610; 85730; 90471; 90715; 99285-25

== ENCOUNTER 2021-01-23 05:46 | Emergency (ER) | payer OTHER ==
[~2021-01-23] VITALS: Ht 162.6 cm; Wt 81.6 kg
== END 2021-01-23 06:04 | disposition home or self-care (01) ==
LOC: ED 05:46
DX: Z02.2 Encounter for examination for admission to residential institution (principal); S00.211A Abrasion of right eyelid and periocular area, initial encounter; F17.200 Nicotine dependence, unspecified, uncomplicated; X58.XXXA Exposure to other specified factors, initial encounter
CPT/HCPCS: 99283

== ENCOUNTER 2023-10-25 00:38 | Inpatient (IN) | payer OTHER ==
[2023-10-25 01:24] LABS: HEMATOCRIT 35.4 % (35.0-50.0); HEMOGLOBIN 12.1 g/dL (12.0-18.0); MCH 33.1 (27-36); MCHC 34.1 g/dl (30-36); MCV 97.2 fl (81-99); RBC 3.64 M/ul (4.3-5.7); RDW 14.5 (10.5-15.0)
[2023-10-25 01:41] LABS: AMPHETAMINES, URINE NEGATIVE (NEGATIVE); BARBITURATES, URINE NEGATIVE (NEGATIVE); BENZODIAZEPINE, URINE NEGATIVE (NEGATIVE); BUPRENORPHINE, URINE NEGATIVE (NEGATIVE); CANNABINOID, URINE NEGATIVE (NEGATIVE); COCAINE, URINE NEGATIVE (NEGATIVE); ECSTASY, URINE NEGATIVE (NEGATIVE); FENTANYL, URINE NEGATIVE (NEGATIVE); METHADONE, URINE NEGATIVE (NEGATIVE); OPIATES, URINE NEGATIVE (NEGATIVE); OXYCODONE, URINE NEGATIVE (NEGATIVE); PHENCYCLIDINE, URINE NEGATIVE (NEGATIVE)
[2023-10-25 02:01] LABS: ABO O
[2023-10-25 02:02] LABS: ANTIBODY SCREEN NEGATIVE; RH POSITIVE
--- NOTE | 2023-10-25 14:33 | PR ---
[facility] [address] [place], [place] [address] Signed Progress Notes IP Datetime Report Generated by CPN: 10/25/2023 14:33 PROGRESS NOTES: [id number] Impression: Normal Progression of Labor; Reassuring Heart Rate Procedures: Sterile Vag Exam Plan: Continue Present Management VITAL SIGNS: [id number] Vital Signs: Reviewed; Within Normal Limits EXAM: [id number] Dilatation: 1.0 Effacement: 75 Station: -2 Contractions: q 1-2 min MEMBRANES: [id number] Comments: Pt seen and evaluated. Doing well. Becoming more uncomfortable w/ contractions. Minimal variability and variable decelerations noted, now moderate variability w/ accels. Noted tachysystole. Consider Terbuatline if additional decelerations. Unable to rupture pt; will consider at next check. Reviewed normal intrapartum glucose FETUS A: [id number] FHR Baseline: 125 Variability: Moderate 6-25bpm Accelerations: 15X15 Decelerations: Variable Presentation: Vertex Comments on Fetus A: No evidence of metabolic acidosis FETUS B: [id number] Signing Physician: Doris Salas DO Copies: ~ *Electronically Signed* 10/25/23 9824 DORIS SALAS (LUIS) DO PATIENT NAME: DIDI BRYAN PROGRESS NOTE DATE OF : 89 PHYSICIAN: DORIS SALAS (JD) DO RPT #: [id number] REPORT IS CONFIDENTIAL AND NOT TO BE RELEASED WITHOUT AUTHORIZATION
--- NOTE | 2023-10-25 17:33 | PR ---
[facility] [address] [place], [place] [address] Signed Progress Notes IP Datetime Report Generated by CPN: 10/25/2023 17:33 PROGRESS NOTES: [id number] Impression: Normal Progression of Labor; Reassuring Heart Rate Procedures: Sterile Vag Exam Plan: Continue Present Management; Anesthesia Consult; Anticipate Vaginal Delivery Informed Consent Obtain: Vaginal Delivery VITAL SIGNS: [id number] Vital Signs: Reviewed; Within Normal Limits EXAM: [id number] Dilatation: 1.0 Effacement: 100 Station: -2 Contractions: q 1 min MEMBRANES: [id number] Comments: Pt seen and examined. Glucose 87. SROM large amount of clear fluid. CTXs much more intense per pt. Pt requesting epidural and anesthesia on unit to evaluate. Anticipate FETUS A: [id number] FHR Baseline: 125 Variability: Moderate 6-25bpm Accelerations: 15X15 Decelerations: None FHR Category: Category I Presentation: Vertex Comments on Fetus A: No evidence of metabolic acidosis FETUS B: [id number] Signing Physician: Doris Salas DO Copies: ~ *Electronically Signed* 10/25/23 6255 DORIS SALAS (LUIS) DO PATIENT NAME: DIDI BRYAN PROGRESS NOTE DATE OF : 91 PHYSICIAN: DORIS SALAS) DO RPT #: [id number] REPORT IS CONFIDENTIAL AND NOT TO BE RELEASED WITHOUT AUTHORIZATION
[2023-10-26 05:25] LABS: HEMATOCRIT 33.8 % (35.0-50.0); HEMOGLOBIN 11.3 g/dL (12.0-18.0); MCH 32.7 (27-36); MCHC 33.4 g/dl (30-36); RBC 3.44 M/ul (4.3-5.7); RDW 14.7 (10.5-15.0)
--- NOTE | 2023-10-26 12:18 | PR ---
[facility] [address] [facility] [place], [place] [address] Signed PP Progress Notes Datetime Report Generated by CPN: 10/26/2023 12:18 SUBJECTIVE: [id number] Pain: Within Normal Limits Nausea/Vomiting: Denies Flatus: Yes Bowel Movement: Yes Vital Signs: [id number] Vital Signs: Reviewed; Within Normal Limits Cardiovascular: Normal Respiratory: Normal Abdomen/Uterus: Normal Lochia: Normal CVA Tenderness: Normal Extremities: Normal Incision: Not Applicable Progress: Normal Exam Comments: Fundus firm U-2 nontender. Hgb 11.3 IMPRESSION/PLAN/PROCEDURES: [id number] Impression: Normal Progression Plan: Continue Present Management Progress Notes: Pt seen and examined. Doing well. Ambulating, voiding, and tolerating full diet. Pain and lochia minimal. well. No fevers/chills or other concerns. Desires d/c home tomorrow. No questions or concerns. Signing Physician: Doris Salas DO Copies: ~ *Electronically Signed* 10/26/23 1218 DORIS SALAS (LUIS) DO PATIENT NAME: DIDI BRYAN PROGRESS NOTE DATE OF : 91 PHYSICIAN: DORIS SALAS) DO RPT #: [id number] REPORT IS CONFIDENTIAL AND NOT TO BE RELEASED WITHOUT AUTHORIZATION
--- NOTE | 2023-10-27 07:57 | PR ---
[facility] [address] [facility] [place], [place] [address] Signed PP Progress Notes Datetime Report Generated by CPN: 10/27/2023 07:57 SUBJECTIVE: [id number] Pain: Within Normal Limits Nausea/Vomiting: Denies Flatus: Yes Bowel Movement: Yes Vital Signs: [id number] Vital Signs: Reviewed; Within Normal Limits Cardiovascular: Normal Respiratory: Normal Abdomen/Uterus: Normal Lochia: Normal Vulva/Perineum: Not Done Breasts: Not Done CVA Tenderness: Normal Extremities: Normal Incision: Not Applicable Progress: Normal Exam Comments: Fundus firm U-2 nontender. IMPRESSION/PLAN/PROCEDURES: [id number] Impression: Normal Progression Plan: Discharge Progress Notes: Pt seen and examined. Doing well. Ambulating, voiding, and tolerating full diet. Pain and lochia minimal. well. No fevers/chills. No lightheadedness / dizziness. No other concerns. Desires d/c home today. Reviewed d/c instructions. Planning sterilization for pp contraception. All questions answered. F/U at for pp care. Anticipate US at _ 6-8 wk pp to further evaluate fibroid uterus. Signing Physician: Doris Salas DO Copies: ~ *Electronically Signed* 10/27/23 0757 DORIS SALAS (LUIS) DO PATIENT NAME: DIDI BRYAN PROGRESS NOTE DATE OF : 91 PHYSICIAN: DORIS SALAS (JD) DO RPT #: [id number] REPORT IS CONFIDENTIAL AND NOT TO BE RELEASED WITHOUT AUTHORIZATION
== END 2023-10-27 11:20 | disposition home or self-care (01) | DRG 806 ==
LOC: FBC 00:38
PROVIDERS: ADMIT Obstetrics & Gynecology; ATTEND Obstetrics & Gynecology
PROC: 10E0XZZ Delivery of Products of Conception, External Approach (ICD-10-PCS; principal; 2023-10-25)
PROC: 3E0R3BZ Introduction of Anesthetic Agent into Spinal Canal, Percutaneous Approach (ICD-10-PCS; 2023-10-25)
PROC: 00HU33Z Insertion of Infusion Device into Spinal Canal, Percutaneous Approach (ICD-10-PCS; 2023-10-25)
PROC: 0HQ9XZZ Repair Perineum Skin, External Approach (ICD-10-PCS; 2023-10-25)
DX: O24.424 Gestational diabetes mellitus in childbirth, insulin controlled (principal); O72.1 Other immediate postpartum hemorrhage; Z37.0 Single live birth; O76 Abnormality in fetal heart rate and rhythm complicating labor and delivery; Z3A.38 38 weeks gestation of pregnancy; O70.0 First degree perineal laceration during delivery; Z87.891 Personal history of nicotine dependence
CPT/HCPCS: 01960; 36415; 80307; 85027; 86850; 86900; 86901; A9270; J7121